=== PATIENT | male | born 1950 | race Caucasian/White ===

== ENCOUNTER 2016-08-27 20:28 | Emergency (ER) | payer SELFPAY ==
[~2016-08-27] VITALS: Ht 165.1 cm; Wt 79.4 kg
[2016-08-27 20:36] VITALS: BP 190/122
--- NOTE | 2016-08-27 22:09 | NUR ---
PATIENT LEFT WITHOUT BEING SEEN BY DR. PEREZ. NO FURTHER CARE PROVIDED FOR PATIENT.
== END 2016-08-27 22:09 | disposition left against medical advice (07) ==
LOC: MED 20:28
DX: R03.0 Elevated blood-pressure reading, without diagnosis of hypertension (principal); Z53.21 Procedure and treatment not carried out due to patient leaving prior to being seen by health care provider